=== PATIENT | male | born 1970 | race Hispanic/Latino ===

== ENCOUNTER 2019-03-27 10:09 | Emergency (ER) | payer OTHER ==
[2019-03-27 10:28] VITALS: BMI 27.2
[2019-03-27] MEDS ORDERED: Tdap Vaccine 0.5 ml Vial (10-64 yrs) IM ONE ×2 (12:05→12:18)
--- NOTE | 2019-03-27 12:23 | C.PDOC ---
History Of Present Illness 49 y/o male comes in to ED complaining he fell from a hoist on to his right shoulder. He denies LOC or head injury. Denies chest pain, SOB, nausea, vomiting, or diarrhea. - HPI Chief Complaint (Nursing): Upper Extremity Problem/Injury History Per: Patient History/Exam Limitations: no limitations Onset/Duration Of Symptoms: Hrs Past Medical History Reviewed: Historical Data, Nursing Documentation, Vital Signs Vital Signs: Last Vital Signs Temp 98.8 F 03/27/19 10:27 Pulse 94 H 03/27/19 10:27 Resp 18 03/27/19 10:27 BP 145/100 H 03/27/19 10:27 Pulse Ox 98 03/27/19 10:27 Primary Care Provider: Non [facility] Provider, Surgical History: Appendectomy Family History: States: No Known Family Hx - Social History Hx Alcohol Use: No Hx Substance Use: No Review Of Systems Except As Marked, All Systems Reviewed And Found Negative. Constitutional: Negative for: Fever, Chills Gastrointestinal: Negative for: Nausea, Vomiting, Diarrhea Musculoskeletal: Positive for: Shoulder Pain (Right). Negative for: Neck Pain Physical Exam - Physical Exam Appears: Non-toxic, No Acute Distress Skin: Warm, Dry Head: Normacephalic Eye(s): bilateral: PERRL Oral Mucosa: Moist Neck: Supple Chest: Symmetrical Cardiovascular: Rhythm Regular, No Murmur Respiratory: Normal Breath Sounds, No Rales, No Rhonchi, No Wheezing Extremity: Capillary Refill (less than 2 seconds), No Deformity, Other (large abrasion to posterior right upper shoulder, obvious asymmetry) Extremity: Bilateral: Normal ROM Pulses: Left Radial: Normal, Right Radial: Normal Neurological/Psych: Oriented x3, Normal Speech, Normal Motor, Normal Sensation (good sensation along right upper extremity) ED Course And Treatment O2 Sat by Pulse Oximetry: 98 (RA) Pulse Ox Interpretation: Normal - Other Rad Shoulder XR X-Ray: Read By Radiologist Interpretation: FINDINGS: BONES: Normal. No fracture. JOINTS: Normal. Glenohumeral and acromioclavicular joints preserved. No osteoarthritis. SOFT TISSUES: Normal. OTHER FINDINGS: None. IMPRESSION: Normal radiographs of the right shoulder. Medical Decision Making Medical Decision Making: Plan: --Right Shoulder XR --Tdap --Tylenol PO Shoulder XR negative. Spoke to patient about results. Will follow up with orthopedist. Disposition Counseled Patient/Family Regarding: Studies Performed, Diagnosis, Need For Followup - Disposition Disposition: HOME/ ROUTINE Disposition Time: 13:52 Condition: STABLE Additional Instructions: DANTE VARGAS, thank you for letting us take care of you today. Your provider was Liberty Bolanos MD and you were treated for FALL/RT SHOULDER PAIN. The emergency medical care you received today was directed at your acute symptoms. If you were prescribed any medication, please fill it and take as directed. It may take several days for your symptoms to resolve. Return to the Emergency Department if your symptoms worsen, do not improve, or if you have any other problems. Please contact your orthopaedic doctor for a follow up appointment. Bring any paperwork you were given at discharge with you along with any medications you are taking to your follow up visit. Our treatment cannot replace ongoing medical care by a primary care provider outside of the emergency department. Thank you for allowing the [facility] team to be part of your care today. Prescriptions: Ibuprofen [Motrin Tab] 800 mg PO TID PRN #30 tab PRN Reason: Pain, Moderate (4-7) Instructions: Skin Abrasions (DC), Shoulder Sprain (ED), How to Use a Shoulder Sling Forms: [employer] ([employer]), General Discharge Instructions - POA Present On Arrival: None - Clinical Impression Clinical Impression: Abrasion, Shoulder injury - Scribe Statement The provider has reviewed the documentation as recorded by the Dominikibsondra Burleson Provider Attestation: All medical record entries made by the Dominikibe were at my direction and personally dictated by me. I have reviewed the chart and agree that the record accurately reflects my personal performance of the history, physical exam, medical decision making, and the department course for this patient. I have also personally directed, reviewed, and agree with the discharge instructions and disposition.
--- NOTE | 2019-03-27 13:34 | RAD ---
Date of service: 03/27/2019 PROCEDURE: Radiographs of the Right Shoulder HISTORY: injury COMPARISON: No prior. TECHNIQUE: 3 views obtained. FINDINGS: BONES: Normal. No fracture. JOINTS: Normal. Glenohumeral and acromioclavicular joints preserved. No osteoarthritis. SOFT TISSUES: Normal. OTHER FINDINGS: None. IMPRESSION: Normal radiographs of the right shoulder.
[2019-03-27 14:36] VITALS: BP 135/90; PULSE 86; RESP 18; TEMP 98.6; O2SAT 100
== END 2019-03-27 14:39 | disposition home or self-care (01) ==
LOC: C.ER 10:09
DX: S40.211A Abrasion of right shoulder, initial encounter (principal); W19.XXXA Unspecified fall, initial encounter